=== PATIENT | female | born 1985 | race Caucasian/White ===

== ENCOUNTER 2025-02-21 12:51 | Outpatient (CLI) | payer BC, SELFPAY ==
--- NOTE | 2025-02-21 13:00 | MM_ITS ---
WS: [id number] BILATERAL 3D TOMOSYNTHESIS DIGITAL SCREENING MAMMOGRAPHY WITH CAD CLINICAL INFORMATION: SCREENING HISTORY: Screening mammogram. No current complaints. COMPARISON: None. TECHNIQUE: Bilateral CC and MLO views. FINDINGS: The breasts are composed of heterogeneous fibroglandular density tissue, which can limit the detection of small underlying mass lesions. Tiny punctate calcification LEFT breast Ovoid nodular density measuring 4 mm inferior RIGHT breast near the 6 o'clock position. This localizes to the lower slightly inner quadrant. This is best seen on the MLO view. Recommend RIGHT breast diagnostic mammography and ultrasound if persistent. MM/MM [facility] tomosynthesis [id number] IMPRESSION: DENSITY: The breasts are heterogeneously dense, which may obscure small masses. BI-RADS: 0 - Incomplete: Need additional imaging evaluation FOLLOW UP: Need Additional Imaging Recommend RIGHT breast diagnostic mammography and ultrasound if persistent
== END 2025-02-21 12:52 | disposition home or self-care (01) ==
LOC: MOBLMAM 12:55
PROVIDERS: PCP Student in an Organized Health Care Education/Training Program; Visit Provider Student in an Organized Health Care Education/Training Program
DX: Z12.31 Encounter for screening mammogram for malignant neoplasm of breast (principal); R92.323 Mammographic fibroglandular density, bilateral breasts; R92.333 Mammographic heterogeneous density, bilateral breasts
CPT/HCPCS: 77063; 77067

== ENCOUNTER 2025-03-20 14:00 | Outpatient (CLI) | payer BC, SELFPAY ==
--- NOTE | 2025-03-20 14:20 | MM_ITS ---
WS: [id number] RIGHT 3D TOMOSYNTHESIS DIGITAL MAMMOGRAPHY WITH CAD CLINICAL INFORMATION: MASS OF R BREAST HISTORY: Additional views COMPARISON: 02/21/2025 TECHNIQUE: 3 views of the right breast were obtained. FINDINGS: Scattered fibroglandular densities of the right breast. Again seen is the ovoid nodular density measuring 4 mm inferior RIGHT breast near the 6 o'clock position. ULTRASOUND BREAST RIGHT TECHNIQUE: Ultrasound right breast focused area of concern. CLINICAL INFORMATION: MASS OF R BREAST FINDINGS: Ultrasound RIGHT breast 5 to 7 o'clock position. 6 x 7 x 3 mm hypoechoic complex ovoid lesion with adjacent dilated duct. This probably corresponds to the mammographic findings. This is technically indeterminate and recommend further evaluation with ultrasound-guided biopsy. MM/MM diag RT tomosynthesis [id number] IMPRESSION: DENSITY: There are scattered areas of fibroglandular density. BI-RADS: 4 - Suspicious Finding - Biopsy Should Be Considered. FOLLOW UP: US Guided Biopsy Recommended Recommend ultrasound-guided biopsy of the RIGHT breast lesion
== END 2025-03-20 14:01 | disposition home or self-care (01) ==
LOC: RAD 14:04
PROVIDERS: PCP Student in an Organized Health Care Education/Training Program; Visit Provider Student in an Organized Health Care Education/Training Program
DX: N63.14 Unspecified lump in the right breast, lower inner quadrant (principal); R92.323 Mammographic fibroglandular density, bilateral breasts; R92.8 Other abnormal and inconclusive findings on diagnostic imaging of breast
CPT/HCPCS: 76642; 77061; G0279